=== PATIENT | male | born 1965 | race African-American/Black ===

== ENCOUNTER 2021-03-16 10:51 | Day surgery (SDC) | payer OTHER ==
[2021-03-13 11:16] VITALS: BMI 32.1
[2021-03-16 13:05] VITALS: BP 145/89; PULSE 70; TEMP 97.6
== END 2021-03-16 13:30 | disposition home or self-care (01) ==
LOC: FASU-ENDO 10:51
PROVIDERS: ATTEND Internal Medicine Gastroenterology
PROC: 0DJD8ZZ Inspection of Lower Intestinal Tract, Via Natural or Artificial Opening Endoscopic (ICD-10-PCS; principal; 2021-03-16 12:18)
DX: Z12.11 Encounter for screening for malignant neoplasm of colon (principal)

== ENCOUNTER 2021-11-27 13:52 | Emergency (ER) | payer OTHER ==
[2021-11-27 14:13] VITALS: BP 137/93; PULSE 80; TEMP 98; BMI 32.8
[2021-11-27] MEDS ORDERED: ACETAMINOPHEN 500 MG TABLET (FP) PO ONE (15:43)
[2021-11-27] MEDS ORDERED: ACETAMINOPHEN 500 MG TABLET (FP) ONE (16:02)
[2021-11-27 16:18] LABS: HEMATOCRIT 38.2 % (35.4-49); HEMOGLOBIN 13.6 G/dL (11.7-16.9); MCHC 35.5 g/dl (32.0-35.9); MEAN CELL VOLUME 87.3 fl (80-96); MEAN PLT VOLUME 7.3 fl (7.5-11.1); PLATELET COUNT 184.6 10^3/uL (134-434); RBC 4.37 10^6/uL (4.00-5.60); RDW 14.3 % (11.9-15.9); WHITE BLOOD COUNT 3.9 10^3/uL (4.0-10.8)
[2021-11-27 16:26] LABS: BILIRUBIN,TOTAL 0.8 mg/dl (0.2-1); CALCIUM 8.5 mg/dl (8.5-10); TOT PROT 7.9 g/dl (6.4-8.2)
== END 2021-11-27 17:05 | disposition home or self-care (01) ==
LOC: FER 13:52
DX: U07.1 COVID-19 (principal)
CPT/HCPCS: 36415; 80053; 81003; 81015; 85025; 87086; 99283-25; C9803-CS; U0003; U0005